=== PATIENT | male | born 1990 | race Caucasian/White ===

== ENCOUNTER 2017-07-21 20:20 | Emergency (ER) | payer MEDICAID ==
[~2017-07-21] VITALS: Ht 175.3 cm; Wt 76.2 kg
[2017-07-21 20:26] VITALS: BP 147/79
[2017-07-21] MEDS ORDERED: ketorolac trometh. 30mg/ml inj. IM ONE (22:15)
== END 2017-07-21 23:40 | disposition home or self-care (01) ==
LOC: ER 20:21
DX: M54.5 Low back pain (principal); G89.29 Other chronic pain; M19.90 Unspecified osteoarthritis, unspecified site; X50.1XXA Overexertion from prolonged static or awkward postures, initial encounter; Y93.89 Activity, other specified; Y92.89 Other specified places as the place of occurrence of the external cause; Y99.9 Unspecified external cause status
CPT/HCPCS: 96372; 99284; J1885; 78730; 78740

== ENCOUNTER 2023-06-11 14:01 | Emergency (ER) | payer MEDICAID ==
[~2023-06-11] VITALS: Ht 175.3 cm; Wt 82.1 kg
--- NOTE | 2023-06-11 15:01 | NUR ---
MSE COMPLETED BY JULISSA GOMEZ.
[2023-06-11] MEDS ORDERED: iohexol 300mg/ml 100ml inj. ONE (15:51)
[2023-06-11 17:17] LABS: BASOPHILS # (AUTO) 0.1 X10'3 (0-0.2); BASOPHILS % (AUTO) 1.4 % (0-1); EOSINOPHILS # (AUTO) 0.2 X10'3 (0-0.9); EOSINOPHILS % (AUTO) 2.4 % (0-6); HEMATOCRIT 48.6 % (42.0-52.0); HEMOGLOBIN 16.7 g/dl (14.0-17.9); LYMPHOCYTES # (AUTO) 1.5 X10'3 (1.1-4.8); LYMPHOCYTES % (AUTO) 22.6 % (21-51); MEAN CORPUSCULAR HGB CONC 34.3 g/dL (33.0-36.5); MEAN CORPUSCULAR VOLUME 90.3 FL (78-98); MEAN PLATELET VOLUME 8.5 FL (7.4-10.4); MONOCYTES # (AUTO) 0.3 X10'3 (0-0.9); MONOCYTES % (AUTO) 5.1 % (2-12); NEUTROPHILS # (AUTO) 4.6 X10'3 (1.8-7.7); NEUTROPHILS % (AUTO) 68.5 % (42-75); PLATELET COUNT 353 X10'3 (140-440); RED BLOOD COUNT 5.38 X10'6 (4.70-6.10); RED CELL DISTRIBUTION WIDTH 13.3 % (11.5-14.5); WHITE BLOOD COUNT 6.8 X10'3 (4.5-11.0)
[2023-06-11 17:29] LABS: ALANINE AMINOTRANSFERASE 36 U/L (12-78); ALBUMIN 4.7 G/DL (3.4-5.0); ALBUMIN/GLOBULIN RATIO 1.5 (1.1-1.5); ALKALINE PHOSPHATASE 91 IU/L (46-116); ANION GAP 6 (8-16); ASPARTATE AMINO TRANSFERASE 22 U/L (10-37); BILIRUBIN,TOTAL 0.4 MG/DL (0.1-1.0); BLOOD UREA NITROGEN 3 MG/DL (7-18); BUN/CREATININE RATIO 2.9 (10.0-20.0); CALCIUM 9.6 MG/DL (8.5-10.1); CHLORIDE 102 MMOL/L (99-107); CREATININE 1.02 MG/DL (0.60-1.10); GLUCOSE 91 MG/DL (70-104); LIPASE 36 U/L (16-77); POTASSIUM 3.9 MMOL/L (3.5-5.1); SODIUM 139 MMOL/L (135-145); TOTAL CARBON DIOXIDE 31.3 MMOL/L (24-32); TOTAL PROTEIN 7.9 G/DL (6.4-8.2); eCRCL 103 ML/MIN; eGFR 84 ML/MIN
[2023-06-11] MEDS ORDERED: sulfamethoxazole/trimethoprim DS (800/160mg) tablet PO ONE (18:25)
[2023-06-11] MEDS ORDERED: ciprofloxacin 250mg tablet PO ONE (18:25)
[2023-06-11 18:28] LABS: BILIRUBIN,URINE NEGATIVE (Neg); CLARITY,URINE CLEAR (Clear); COLOR,URINE STRAW (Yellow); GLUCOSE, URINE NEGATIVE (Neg); KETONES,URINE NEGATIVE (Neg); LEUKOCYTE ESTERASE ,URINE NEGATIVE (Neg); NITRITES, URINE NEGATIVE (Neg); OCCULT BLOOD,URINE NEGATIVE (Neg); PH,URINE 7.5 (4.8-8.0); PROTEIN,URINE NEGATIVE (Neg); UROBILINOGEN,URINE 0.2 E.U/dL (0.2-1.0)
[2023-06-11] MEDS ORDERED: METR-159 PO (18:30)
[2023-06-11] MEDS ORDERED: CIPR-429 PO (18:30)
[2023-06-11 18:34] LABS: UA COLLECTION TYPE CLN CATCH MIDSTREAM
[2023-06-11] MEDS ORDERED: metroNIDAZOLE 500mg tablet PO ONE (18:35)
[2023-06-11 18:47] VITALS: BP 126/87; PULSE 76; RESP 16; TEMP 98; O2SAT 100
== END 2023-06-11 18:48 | disposition home or self-care (01) ==
LOC: ER 14:01
DX: K57.92 Diverticulitis of intestine, part unspecified, without perforation or abscess without bleeding (principal)
CPT/HCPCS: 36415; 74177; 80053; 81003; 83605; 83690; 84145; 85025; 87040; 99285; J3490; Q9967

== ENCOUNTER 2023-08-23 20:16 | Emergency (ER) | payer MEDICAID ==
[~2023-08-23] VITALS: Ht 175.3 cm; Wt 80.5 kg
[2023-08-23 22:13] LABS: ALANINE AMINOTRANSFERASE 32 U/L (12-78); ALBUMIN/GLOBULIN RATIO 1.3 (1.1-1.5); ALKALINE PHOSPHATASE 111 IU/L (46-116); ANION GAP 12 (8-16); ASPARTATE AMINO TRANSFERASE 27 U/L (10-37); BASOPHILS # (AUTO) 0.1 X10'3 (0-0.2); BASOPHILS % (AUTO) 0.9 % (0-1); BILIRUBIN,TOTAL 0.3 MG/DL (0.1-1.0); BLOOD UREA NITROGEN 14 MG/DL (7-18); BUN/CREATININE RATIO 13.3 (10.0-20.0); CALCIUM 8.9 MG/DL (8.5-10.1); CHLORIDE 102 MMOL/L (99-107); CREATININE 1.05 MG/DL (0.60-1.10); EOSINOPHILS # (AUTO) 0.3 X10'3 (0-0.9); EOSINOPHILS % (AUTO) 3.2 % (0-6); GLUCOSE 99 MG/DL (70-104); HEMATOCRIT 46.2 % (42.0-52.0); LYMPHOCYTES # (AUTO) 2.3 X10'3 (1.1-4.8); LYMPHOCYTES % (AUTO) 28.4 % (21-51); MEAN CORPUSCULAR HEMOGLOBIN 31.4 PG (27.0-31.0); MEAN CORPUSCULAR HGB CONC 34.5 g/dL (33.0-36.5); MEAN CORPUSCULAR VOLUME 90.9 FL (78-98); MEAN PLATELET VOLUME 8.6 FL (7.4-10.4); MONOCYTES # (AUTO) 0.5 X10'3 (0-0.9); NEUTROPHILS # (AUTO) 4.9 X10'3 (1.8-7.7); NEUTROPHILS % (AUTO) 61.5 % (42-75); PLATELET COUNT 264 X10'3 (140-440); POTASSIUM 3.7 MMOL/L (3.5-5.1); RED BLOOD COUNT 5.09 X10'6 (4.70-6.10); RED CELL DISTRIBUTION WIDTH 13.2 % (11.5-14.5); SODIUM 142 MMOL/L (135-145); TOTAL CARBON DIOXIDE 27.9 MMOL/L (24-32); TOTAL PROTEIN 7.1 G/DL (6.4-8.2); eCRCL 100 ML/MIN; eGFR 81 ML/MIN
[2023-08-24 02:00] LABS: BILIRUBIN,URINE NEGATIVE (Neg); CLARITY,URINE CLEAR (Clear); COLOR,URINE STRAW (Yellow); GLUCOSE, URINE NEGATIVE (Neg); KETONES,URINE NEGATIVE (Neg); LEUKOCYTE ESTERASE ,URINE NEGATIVE (Neg); NITRITES, URINE NEGATIVE (Neg); OCCULT BLOOD,URINE NEGATIVE (Neg); PROTEIN,URINE NEGATIVE (Neg); UROBILINOGEN,URINE 0.2 E.U/dL (0.2-1.0)
[2023-08-24] MEDS ORDERED: AMOX-115 PO (02:01)
[2023-08-24 02:04] LABS: UA COLLECTION TYPE CLN CATCH MIDSTREAM
[2023-08-24 02:10] VITALS: BP 134/66; PULSE 69; RESP 16; TEMP 98.3; O2SAT 97
== END 2023-08-24 02:12 | disposition home or self-care (01) ==
LOC: ER 20:17
DX: R10.9 Unspecified abdominal pain (principal); G89.29 Other chronic pain; M54.9 Dorsalgia, unspecified; Z79.899 Other long term (current) drug therapy
CPT/HCPCS: 36415; 74176; 80053; 81003; 83605; 84145; 85025; 87040; 99284

== ENCOUNTER 2025-02-19 22:12 | Emergency (ER) | payer MEDICAID ==
[~2025-02-19] VITALS: Ht 175.3 cm; Wt 91.0 kg
[2025-02-19 22:41] LABS: MEAN PLATELET VOLUME 8.3 FL (7.4-10.4); RED CELL DISTRIBUTION WIDTH 13.5 % (11.5-14.5)
[2025-02-19 23:21] LABS: CREATININE 0.99 MG/DL (0.60-1.10); TOTAL CARBON DIOXIDE 27.7 MMOL/L (24-32); eCRCL 105 ML/MIN; eGFR 87 ML/MIN
--- NOTE | 2025-02-20 00:18 | Physician Documentation ---
History of Present Illness Chief Complaint: Abdominal Pain w/vomiting Stated Complaint: ABDOMINAL PAIN Time Seen by MD: 00:17 OK to notify your PCP?: Yes Primary Medical Doctor: kristofer Contreras @ [facility] in [place] Source: patient, RN/, RN notes reviewed, old records Mode of Arrival: POV Exam Limitations: no limitations HPI This patient is a 34 y/o male who presents to ED with chief complaint of abdominal pain. Patient reports this pain has been on and off over the past year, however it has gotten much worse within the past 24 hours. He states that this pain is localized to his right upper quadrant, worse with movement. No trauma prior to onset of pain. Some associated nausea. Patient reports he has had constipation and diarrhea intermittently over darion past several weeks. 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 Patient now states on strict diet of broth, protein shakes, etc. No recent changes to his diet. No prior history of kidney or gallstones. He does note history of diverticulitis. Patient denies any associated symptoms at this time. Patient denies any alleviating or exacerbating factors. Medication Reconciliation Allergies: Coded Allergies: No Known Allergies (Unverified , 08/23/23) Scheduled Budesonide/Formoterol Fumarate (Symbicort 80-4.5 Mcg Inhaler), 2 PUFFS INH Q12H, (Reported) Past Medical History Past Medical History: Diverticulitis, Arthritis, Chronic Back Pain Past Surgical History: noncontributory Smoking Status: Former smoker Alcohol Use: None Drug Use: none Lives with: Family Lives In: Home Occupation: employed Review of Systems All Other Systems at this time: Reviewed and Negative Physical Exam Vital Signs: RN Vital Signs have been reviewed: Yes, Temperature: 98.4, Heart Rate: 88, Respiratory Rate: 16, BP: 145/82, Pulse Oximetry: 99, Weight: 90.950 Oxygen Flow Rate: 0 Physical Exam General: The patient is well developed, well nourished, nontoxic appearing and is in no acute distress. Skin: [place], warm and dry with no rashes. HEENT: Head was normocephalic and atraumatic. Eyes - pupils equal, round, reactive to light and accommodation. Extraocular movements were intact. Conjunctivae were nonicteric. Ears - bilateral tympanic membranes were normal. The mouth and oropharynx were clear with moist mucous membranes. There were no pharyngeal exudates or erythema. Neck: Supple and nontender. There was no jugular venous distention, lymphadenopathy, thyromegaly or masses. Chest: Clear to auscultation bilaterally without wheezes, rales or rhonchi. No accessory muscle use. No dullness to percussion. Heart: Rate regular and rhythmic. S1, S2. No murmurs. Palpation of the chest wall was normal. No rubs or thrills. Abdomen: Point tenderness over the RUQ. Otherwise abdomen is soft and nondistended. Positive bowel sounds. No guarding or rebound. No hepatosplenomegaly or palpable masses. Extremities: No cyanosis, clubbing or edema. The patient moves all extremities. Pulses were equal and symmetric. Neurologic: Cranial nerves II-XII were intact. Sensation was intact to light touch throughout. Motor strength was 5/5 in all four extremities. Deep tendon reflexes were intact in both upper and lower extremities. Psychologic: The patient was oriented to person, place and time. The patient demonstrated appropriate judgement and insight. Progress Results/Orders Reviewed/noted all lab results: Yes Results/Orders Orders - DENIA COLES MD Urinalysis, Cult If Indicated (02/19/25 22:18) Completed Orders - DENIA COLES MD Cbc/Diff (02/19/25 22:18) Lipase (02/19/25 22:18) CMP (02/19/25 22:18) Vital Signs 02/19/25 22:16 Temp 98.4 Pulse 88 Resp 16 B/P (MAP) 145/82 Pulse Ox 99 O2 Flow Rate 0 Laboratory Tests Test 02/19/25 22:25 White Blood Count 7.2 Red Blood Count 4.94 Hemoglobin 15.1 Hematocrit 43.6 Mean Corpuscular Volume 88.3 Mean Corpuscular Hemoglobin 30.6 Mean Corpuscular Hemoglobin Concent 34.6 Red Cell Distribution Width 13.5 Platelet Count 246 Mean Platelet Volume 8.3 Neutrophils (%) (Auto) 63.7 Lymphocytes (%) (Auto) 26.6 Monocytes (%) (Auto) 6.3 Eosinophils (%) (Auto) 2.4 Basophils (%) (Auto) 1.0 Neutrophils # (Auto) 4.6 Lymphocytes # (Auto) 1.9 Monocytes # (Auto) 0.5 Eosinophils # (Auto) 0.2 Basophils # (Auto) 0.1 CBC Comment Sodium Level 137 Potassium Level 3.9 Chloride Level 104 Carbon Dioxide Level 27.7 Anion Gap 5 L Blood Urea Nitrogen 14 Creatinine 0.99 Estimated GFR/1.73 m2 87 BUN/Creatinine Ratio 14.1 Glucose Level 107 H Calcium Level 9.0 Total Bilirubin 0.4 Aspartate Amino Transf (AST/SGOT) 30 Alanine Aminotransferase (ALT/SGPT) 45 Alkaline Phosphatase 88 Total Protein 7.2 Albumin 4.1 Globulin 3.1 Albumin/Globulin Ratio 1.3 Lipase 30 Chemistry Comments EKG/XRAY/CT/US/VASC/MRI CT : Interpreted By: radiologist CT: abdomen/pelvis With Contrast?: No Impression [place] [id number] CAT SCAN Patient: SHIRIN ZAMORA Medical Record: [id number] [facility] : 1990, Age: 34 Sex: Male Location: ER Patient Status: [facility] Service Date/Time: 02/20/2548 Ordering Physician: DENIA COLES MD Exam: CT ABDOMEN PELVIS Exam: CT CT ABDOMEN PELVIS History: ABD PAIN Comparison Study: CT CT ABDOMEN PELVIS on DOS: 08/23/23, CT CT ABDOMEN PELVIS on DOS: 06/11/23 Technique: Multidetector spiral CT of the abdomen was performed from lung bases to pubic symphysis. Imaging was performed without IV contrast. Axial, coronal and sagittal multiplanar reformats were obtained from the axial data set by the technologist. Radiation Dose : 1. Abdomen/Pelvis: CTDIvol 21.97 mGy, DLP 1179.12 mGy*cm. Findings: Evaluation of solid organs is limited due to lack of intravenous contrast use. Lung Bases: No acute or significant lung base finding. Normal heart size. No pleural or pericardial effusion. Liver: The liver is normal in size. No focal lesions. Gallbladder and Biliary Tree: Unremarkable Spleen: Unremarkable Pancreas: The pancreas is grossly normal in appearance. Adrenal Glands: Unremarkable Kidneys: Kidneys are grossly normal without calculi or hydronephrosis. Bladder: Grossly unremarkable for degree of distention. Bowel: Small hiatal hernia. The stomach is grossly normal in appearance. Small bowel and colon are normal in caliber and distribution. Diverticulosis coli without CT evidence of acute diverticulitis. The appendix is normal. Ascites: Absent Lymphadenopathy: No mesenteric, retroperitoneal or periportal lymphadenopathy. Abdominal Wall and Mesentery: Unremarkable. Vasculature: The visualized abdominal aorta is normal in size and caliber. Evaluation of abdominal and pelvic vessels is limited due to lack of intravenous contrast. Pelvic Organs: Unremarkable Musculoskeletal: No aggressive focal bony lesions, acute fractures or dislocation. Hardware status post L5-S1 posterior lumbar interbody fusion without evidence of complication. IMPRESSION: 1. No acute abdominal or pelvic findings. 2. Diverticulosis coli without CT evidence of acute diverticulitis. Radiation optimization: All CT scans at this facility use at least one of these dose optimization techniques: automated exposure control mA and/or kV adjustment per patient size (includes targeted exams where dose is matched to clinical indication) or iterative reconstruction. Electronically Signed by:KLEVER FERRER MD Date & Time: 02/20/25137 Dictated by: KLEVER FERRER MD Dictation date and time: 02/20/25137 Primary Care Provider: NO PRIMARY CARE PROVIDER cc: DENIA COLES MD ~ Departure Time of Disposition: 02:26 Disposition: 01 HOME / SELF CARE / HOMELESS Impression: Primary Impression: Abdominal pain Qualified Codes: R10.11 - Right upper quadrant pain Condition: Stable Discharge Instructions: Abdominal Pain, Women Additional Instructions: Please follow up with your regular doctor. Your workup in the ER today was negative for any acute emergencies, but it is important to follow up as soon as possible for further evaluation. Referrals: NO PRIMARY CARE PROVIDER (PCP) Signature Scribe Signature: Scribed for Denia Coles MD by Joseline Grace . 02/20/25 02:24 Attestation: The note accurately reflects work and decisions made by me.Denia Coles MD 02/20/25 00:18 DENIA COLES MD Feb 20, 2025 00:18
[2025-02-20] MEDS: normal saline 1000ML IV soln IVB ONE (01:01)
[2025-02-20] MEDS ORDERED: BUDE10.22 INH (01:03)
[2025-02-20] MEDS: metoclopramide 5 mg/ml inj IV ONE (01:14)
--- NOTE | 2025-02-20 01:41 | RADIOLOGY REPORT ---
Exam: CT CT ABDOMEN PELVIS History: ABD PAIN Comparison Study: CT CT ABDOMEN PELVIS on DOS: 08/23/23, CT CT ABDOMEN PELVIS on DOS: 06/11/23 Technique: Multidetector spiral CT of the abdomen was performed from lung bases to pubic symphysis. I maging was performed without IV contrast. Axial, coronal and sagittal multiplanar reformats were obta ined from the axial data set by the technologist. Radiation Dose : 1. Abdomen/Pelvis: CTDIvol 21.97 mGy, DLP 1179.12 mGy*cm. Findings: Evaluation of solid organs is limited due to lack of intravenous contrast use. Lung Bases: No acute or significant lung base finding. Normal heart size. No pleural or pericardial effusion. Liver: The liver is normal in size. No focal lesions. Gallbladder and Biliary Tree: Unremarkable Spleen: Unremarkable Pancreas: The pancreas is grossly normal in appearance. Adrenal Glands: Unremarkable Kidneys: Kidneys are grossly normal without calculi or hydronephrosis. Bladder: Grossly unremarkable for degree of distention. Bowel: Small hiatal hernia. The stomach is grossly normal in appearance. Small bowel and colon are no rmal in caliber and distribution. Diverticulosis coli without CT evidence of acute diverticulitis. Th e appendix is normal. Ascites: Absent Lymphadenopathy: No mesenteric, retroperitoneal or periportal lymphadenopathy. Abdominal Wall and Mesentery: Unremarkable. Vasculature: The visualized abdominal aorta is normal in size and caliber. Evaluation of abdominal a nd pelvic vessels is limited due to lack of intravenous contrast. Pelvic Organs: Unremarkable Musculoskeletal: No aggressive focal bony lesions, acute fractures or dislocation. Hardware status po st L5-S1 posterior lumbar interbody fusion without evidence of complication. IMPRESSION: 1. No acute abdominal or pelvic findings. 2. Diverticulosis coli without CT evidence of acute diverticulitis. Radiation optimization: All CT scans at this facility use at least one of these dose optimization sylvester hniques: automated exposure control mA and/or kV adjustment per patient size (includes targeted exam s where dose is matched to clinical indication) or iterative reconstruction.
[2025-02-20 02:08] LABS: LEUKOCYTE ESTERASE ,URINE NEGATIVE (Neg); NITRITES, URINE NEGATIVE (Neg); OCCULT BLOOD,URINE NEGATIVE (Neg)
[2025-02-20 02:10] LABS: UA COLLECTION TYPE CLN CATCH MIDSTREAM
[2025-02-20] MEDS: ketorolac trometh 30MG/ML vial 30 MG/ML VIAL IV ONE (02:33)
[2025-02-20 02:37] VITALS: BP 118/77; PULSE 54; RESP 18; TEMP 98.4; O2SAT 100
== END 2025-02-20 02:39 | disposition home or self-care (01) ==
LOC: ER 22:13
DX: R10.11 Right upper quadrant pain (principal); R11.2 Nausea with vomiting, unspecified; M19.90 Unspecified osteoarthritis, unspecified site; Z87.891 Personal history of nicotine dependence
CPT/HCPCS: 36415; 74176; 80053; 81003; 83690; 85025; 96361; 96374; 96375; 99285; J1885; J2765; J7030

== ENCOUNTER 2025-03-22 06:06 | Day surgery (SDC) | payer MEDICAID ==
[~2025-03-22] VITALS: Ht 175.3 cm; Wt 86.3 kg
[2025-03-22] VITALS (8 sets, daily range): BP systolic 111–132; BP diastolic 61–88; PULSE 54–86; RESP 14–24; TEMP 98.5–98.6; O2SAT 97–98
[~2025-03-22 06:06] MED LIST: BUDE10.22 INH; LIDOcaine 2% Viscous 15ml cup MM ONE; normal saline 1000ml 1,000 ML IV SCH; ringers solution, lacted 1,000 ML IV SCH
[2025-03-22] MEDS ORDERED: propofol inj 20 ML IV ONE ×3 (08:33→08:52)
== END 2025-03-22 09:48 | disposition home or self-care (01) ==
LOC: OR 06:06
PROVIDERS: ATTEND Internal Medicine Gastroenterology
DX: K92.0 Hematemesis (principal); R10.11 Right upper quadrant pain; K21.00 Gastro-esophageal reflux disease with esophagitis, without bleeding; K22.10 Ulcer of esophagus without bleeding; K31.89 Other diseases of stomach and duodenum; J44.9 Chronic obstructive pulmonary disease, unspecified; M19.90 Unspecified osteoarthritis, unspecified site; Z87.891 Personal history of nicotine dependence; Z79.899 Other long term (current) drug therapy; Z98.890 Other specified postprocedural states
CPT/HCPCS: 43239; 82948; J2704; J7040; J7120; Z7512